=== PATIENT | male | born 1995 | race Two or more races ===

== ENCOUNTER 2024-12-01 17:44 | Emergency (ER) | payer MEDICAID, SELFPAY ==
[2024-12-01 18:01] VITALS: BP 108/67; PULSE 99; RESP 18; TEMP 36.8; O2SAT 96
[2024-12-01 18:06] VITALS: PULSE 98; RESP 16; O2SAT 95
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
[2024-12-01] MEDS: KETOROLAC INJ 60 MG/2 ML VIAL 15 MG IM (19:40)
[2024-12-01] MEDS: METOCLOPRAMIDE INJ 5 MG/ML VIAL 2 ML 10 MG IM (19:41)
[2024-12-01 20:41] LABS: Basophils # (Auto) 0.1 Thou/mm3 (0.0-0.2); Basophils % (Auto) 1 % (0-2.5); Eosinophils # (Auto) 0.1 Thou/mm3 (0.0-0.5); Eosinophils % (Auto) 1 % (0-10); Hematocrit 40.7 % (41.0-53.0); Hemoglobin 14.6 g/dL (13.5-16.0); Immature Granulocytes Auto 0.14 Thou/mm3 (0.00-0.00); Lymphocytes # (Auto) 2.8 Thou/mm3 (1.0-4.8); Lymphocytes % (Auto) 24 % (10-50); Mean Corpuscular HGB Conc 35.9 g/dl (31.0-37.0); Mean Corpuscular Hemoglobin 31.7 pg (25.0-35.0); Mean Corpuscular Volume 88 fL (80-100); Monocytes # (Auto) 0.9 Thou/mm3 (0.0-0.8); Monocytes % (Auto) 8 % (0-12); Neutrophils # (Auto) 7.7 Thou/mm3 (1.8-7.7); Neutrophils % (Auto) 66 % (37-80); Nucleated Red Blood Cell # 0.00 Thou/mm3 (0.00-0.00); Nucleated Red Blood Cell % 0 /100 WBC (0); Platelet Count 359 Thou/mm3 (140-440); RDW Standard Deviation 38.7 fL (35.1-43.9); Red Blood Count 4.61 Miln/mm3 (4.50-5.90); White Blood Count 11.8 Thou/mm3 (3.8-10.6)
[2024-12-01 21:14] LABS: Alanine Aminotransferase 32 U/L (10-49); Albumin, Serum 4.2 gm/dL (3.5-5.0); Albumin/Globulin Ratio 1.6 (1.2-2.2); Alcohol, Blood Medical 100.5 mg/dL (0-10.0); Alkaline Phosphatase 96 U/L (46-116); Anion Gap 13 (7-16); Aspartate Amino Transferase 45 U/L (0-34); BUN/Creatinine Ratio 8 Ratio (12-20); Bilirubin,Total 0.2 mg/dL (0.3-1.2); Blood Urea Nitrogen 11 mg/dL (9-23); Calcium 9.0 mg/dL (8.3-10.6); Calcium (Corrected) 9.0 mg/dL (8.5-10.1); Carbon Dioxide 24.2 mMol/L (20.0-31.0); Chloride 110 mMol/L (98-107); Creatinine (Component) 1.4 mg/dL (0.6-1.3); Globulin 2.6 gm/dL (2.3-3.5); Glucose 93 mg/dL (74-106); Lipase 40 U/L (12-53); Osmolality,Calculated 291 (275-295); Potassium 3.8 mMol/L (3.4-5.1); Sodium 147 mMol/L (136-145); Thyroid Stimulating Hormone 0.58 uIU/mL (0.55-4.78); Total Protein 6.8 gm/dL (5.7-8.2); eGFR > 60 See Note
[2024-12-01 21:31] VITALS: BP 127/69; PULSE 95; RESP 19; TEMP 36.9; O2SAT 96
== END 2024-12-01 21:50 | disposition home or self-care (01) ==
PROVIDERS: Physician Assistant Medical; Emergency Provider Emergency Medicine
DX: R51.9 Headache, unspecified (principal); F10.10 Alcohol abuse, uncomplicated; F20.9 Schizophrenia, unspecified; E87.1 Hypo-osmolality and hyponatremia
CPT/HCPCS: 36415; 80053; 80307; 80320; 81001; 83690; 84443; 85025; 96372; 99283; J1200; J1885; J2765; A9270; G0480